=== PATIENT | female | born 1945 | race Caucasian/White ===

== ENCOUNTER 2016-12-22 16:31 | Emergency (ER) | payer MEDICARE ==
--- NOTE | 2016-12-22 17:29 | DIAGNOSTIC IMAGING REPORT ---
PROCEDURE: XR KNEE 4 VIEWS - LEFT INDICATION: TRAUMA/INJURY TECHNIQUE: Four views. COMPARISON: None. FINDINGS: Fracture of the patella. There is also a joint effusion. IMPRESSION: 1. Patellar fracture.
--- NOTE | 2016-12-22 17:43 | ED CLINICAL REPORT ---
Clinical Report - Physicians/Mid Levels [facility] [address] [place] [address] 12/22/2016 16:32 [id number] Time Seen: 16:45 Dec 22 2016. Arrived- By private vehicle. Historian- patient, family and daughter. HISTORY OF PRESENT ILLNESS Chief Complaint: Injury to left knee. The injury happened yesterday. The patient sustained a direct blow and crush injury. Fell. Patient is experiencing severe pain. Patient denies injury to the head or neck. (Patient fell onto left knee yesterday. No other injuries. Denies any injuries to the head. Patient has been unable to bear weight on the leg. No prior injury to the area.). REVIEW OF SYSTEMS The patient complains of pain on weight bearing. No skin laceration. All systems otherwise negative, except as recorded above. PAST HISTORY See nurses notes. The patient has not had a prior injury to the same area. Problems: Thyroid Disease. Myofascial Strain. Diabetes Mellitus. Heart Disease. Hypertension. Additional Surgeries: Carpal Tunnel Surgery. Cholecystectomy. Hysterectomy. Medications: Levothyroxine Sodium Oral 125 mcg, daily. Atenolol Oral 25 mg, at bedtime. Atorvastatin Calcium Oral 10 mg, at bedtime. Calcium + D Oral (Tablet 600-200 mg-unit) 2 tablets, pm. Citalopram Hydrobromide Oral (Tablet 20 mg) 1 tablet, pm. Doxazosin Mesylate Oral (Tablet 8 mg) 1 tablet, pm. Glimepiride Oral 5mg BID . MetFORMIN HCl Oral (Tablet 1000 mg), 2x a day. Omeprazole Oral 20 mg, daily. Verapamil HCl Oral SR 240 mg, 2x a day. ASA Oral 325mg daily . Allergies: Codeine.(nausea) Sulfa Antibiotics.(hives). SOCIAL HISTORY Current every day heavy tobacco smoker. No alcohol use or drug use. ADDITIONAL NOTES The nursing notes have been reviewed. PHYSICAL EXAM Vital Signs: 12/22/2016 16:45 BP: 155/70. HR: 79. RR: 18. O2 saturation: 96%. Temp: 97 F. Pain level now: 10/10. Appearance: Alert. Appears to be in pain. Patient in moderate distress. Head: Head atraumatic. Neck: C-spine non-tender. CVS: Normal heart rate and rhythm. Heart sounds normal. Respiratory: No respiratory distress. Breath sounds normal. Extremities: Left thigh. No tenderness or swelling. Left knee: moderate tenderness, severe swelling and small abrasion located in the patella. Limited ROM. No erythema, puncture wound or foreign body. Neuro, Vascular and Tendons: Vascular status intact. Motor intact. Gait: The patient was unable to bear weight. Neuro: Oriented X 3. LABS, X-RAYS, AND EKG EKG: EKG time: (1849). No acute process. No acute ischemia. Rate: 75. Normal ST and T waves and QT. No non-specific ST segment / T wave abnormalities or ST elevation. NSR with minimal voltage criteria for LVH. Prior EKG unavailable. Chest X-ray: (no acute findings of infiltrate/ mass). Laboratory Tests: CBC w Diff: (SHANNAN: 12/22/2016 18:40) ( [facility] [place]/22/[place] 19:13) Final results Test Result Flag Units (Reference) WHITE BLOOD COUNT 16.1 H K/uL (4.5-11.5) RED BLOOD COUNT 4.43 M/uL (4.00-5.20) HEMOGLOBIN 13.9 gm/dL (12.0-16.0) HEMATOCRIT 40.8 % (36.0-46.0) MEAN CELL VOLUME 92 fL (80-100) MEAN CORPUSCULAR HGB 31 pg (26-34) MEAN CORPUSCULAR HGB CONC 34 g/dL (31-37) RED CELL DISTRIBUTION WIDTH 14.0 % (11.6-14.8) PLATELET COUNT 279 K/uL (150-400) NEUTROPHIL % 85.6 H % (50-75) LYMPH % 9.3 L % (25-40) MONO % 4.7 % (3-14) EOSINOPHIL % 0.1 % (0-4) BASOPHIL % 0.3 % (0-2) CMP: (SHANNAN: 12/22/2016 18:40) ( [facility] [place] 12/22/2016 19:13) Final results Test Result Flag Units (Reference) GLUCOSE 145 H mg/dL (70-110) BUN 22 H mg/dL (7-18) CREATININE 1.2 mg/dL (0.6-1.3) Estimated GFR 46.94 mL/min Estimated GFR- 56.89 mL/min Note: Persistent reduction over 3 months in eGFR<60 mL/min/1.73 m2 defines CKD. Patients with eGFR values>=60 mL/min/1.73 m2 may also have CKD if evidence ofpersistent proteinuria. Additional information may be foundat www.kidney.org. SODIUM 137 mmol/L (136-145) POTASSIUM 4.3 mmol/L (3.5-5.1) CHLORIDE 100 mmol/L (98-107) CARBON DIOXIDE 25 mmol/L (21-32) CALCIUM 9.4 mg/dL (8.5-10.1) TOTAL PROTEIN 7.4 g/dL (6.4-8.2) ALBUMIN 3.9 g/dL (3.3-5.0) BILIRUBIN, TOTAL 0.5 mg/dL (0.0-1.0) ALKALINE PHOSPHATASE 57 U/L (46-116) AST (SGOT) 21 U/L (15-37) ALT (SGPT) 30 U/L (12-78) . PROGRESS AND PROCEDURES Splint Application: Time: 18:39 Dec 22 2016. Knee immobilizer applied to left foot, ankle and lower leg. Splint applied by [facility] with direct supervision by me. Follow-up recommended within 6 days. Course of Care: Discussed case with DR. Aguiar, will consult ortho Discussed case with DR. Trujillo, will review images Dr. Trujillo 18:30 in ER Discussed case with DR. Wheeler: Admission of Patella fx , admission Discussed case with DR. Trujillo who would preferr outpatient f/u / or date due to need of time to heal of skin/ effusion Informed Dr. Wheeler of the changes. 12/22/2016 16:45 BP: 155/70. HR: 79. RR: 18. O2 saturation: 96%. Temp: 97 F. Pain level now: 10/10. Patient is stable. Symptoms better. Patient/family counseled. Disposition: Discharged. CLINICAL IMPRESSION Closed transverse fracture of the left patella. Chronic, well controlled type 2 diabetes. Hypertension. Fall. INSTRUCTIONS Apply ice. Wear knee immobilizer. Elevate affected areas above chest level. No strenuous activity. No weight bearing. Prescription Medications: Ibuprofen 800 mg tablets: take 1 tablet orally every 8 hours for 5 days, as needed for pain. Dispense fifteen (15). No refill. Percocet 5 mg/325 mg: take 1 tablet orally every 6 hours as needed for pain. Dispense twenty-five (25). No refill. Substitution is permissible. Follow-up: Follow up with a specialist. Follow[facility] with: [facility], , [address] [facility], [id number] Follow up. Call for the next available appointment. (Electronically signed by Alfreda Hua P.A.-C 12/22/2016 19:28)
--- NOTE | 2016-12-22 17:43 | ED NURSING NOTES ---
Clinical Report - Nurses [facility] [address] [place] [address] 12/22/2016 16:32 [id number] TRI[facility] Triage time 16:45. Acuity: LEVEL 3. Chief Complaint: INJURY TO LEFT KNEE. Alert. WAGNER COMA SCORE: Wagner Coma Scale: 15- eyes open spontaneously (4); best verbal response- oriented x 4 (5); best motor response- obeys commands (6). --17:04 Shahla Snyder R.N. 16:45 12/22/16. BP: 155/70. HR: 79. RR: 18. O2 saturation: 96% on room air. Temp: 97 F. Pain level now: 03/27. --17:04 Shahla Snyder R.N. Weight: 83.9 kg stated. Height/Length: 63 inches Per Patient. BMI: 32.8. --16:54 Shahla Snyder R.N. Medications ASA Oral 325mg daily . --16:50 Shahla Snyder R.N. Atenolol Oral 25 mg, at bedtime. Atorvastatin Calcium Oral 10 mg, at bedtime. Calcium + D Oral (Tablet 600-200 mg-unit) 2 tablets, pm. Citalopram Hydrobromide Oral (Tablet 20 mg) 1 tablet, pm. Doxazosin Mesylate Oral (Tablet 8 mg) 1 tablet, pm. Glimepiride Oral 5mg BID . MetFORMIN HCl Oral (Tablet 1000 mg), 2x a day. Omeprazole Oral 20 mg, daily. Verapamil HCl Oral SR 240 mg, 2x a day. --16:50 Shahla Snyder R.N. Levothyroxine Sodium Oral 125 mcg, daily. --16:51 Shahla Snyder R.N. Medication/allergy information source: the patient. --17:04 Shahla Snyder R.N. Allergies Sulfa Antibiotics.(hives) --16:51 Shahla Snyder R.N. Codeine.(nausea) --16:51 Shahla Snyder R.N. History Arrived by private vehicle. Historian: patient. Accompanied by family. Primary physician (Primitivo). This occurred last night. Mechanism of injury: fell (outside, tripped on a stepping stone). She has had trouble walking. SOCIAL HX: Heavy tobacco smoker- 1 pack per day. No alcohol use or drug use. FALL RISK ASSESSMENT: Fall risk assessment completed. Risk factors identified include patient history of fall; does all of her own yard work. FUNCTIONAL ASSESSMENT: Functional assessment performed: independent with the activities of daily living; uses wheelchair- this mobility impairment is a new problem; hearing impairment present- this hearing impairment is an ongoing problem. --17:04 Shahla Snyder R.N. PROBLEMS: Thyroid Disease. Myofascial Strain. Diabetes Mellitus. Heart Disease. Hypertension. --16:52 Shahla Snyder R.N. ADDITIONAL SURGERIES: Carpal Tunnel Surgery. Cholecystectomy. Hysterectomy. --16:52 Shahla Snyder R.N. Assessment GENERAL / NEURO / PSYCH: Alert. Oriented X 4. Appears in no acute distress. Patient appears calm and cooperative. RESPIRATORY: Respirations not labored. SKIN: Skin is warm and dry. --17:04 Shahla Snyder R.N. Interventions ID and allergy band on patient. To treatment room. --17:04 Shahla Snyder R.N. PHYSICAL ASSESSMENT <<STRICKEN ENTRY-- 17:06 12/22/16. To room via wheelchair. GENERAL / NEURO / PSYCH: ([place] and doesn't have her hearing aid in). She is awake and alert, is oriented and cooperative and appears uncomfortable. She has good eye contact. EXTREMITIES: Limited ROM present. She was unable to bear weight. SKIN: Skin is warm and dry. She has an abrasion. ( right knee swollen). --17:06 Shahla Snyder R.N. --END STRIKE>> Correction --17:09 Shahla Snyder R.N. 17:06 12/22/16. To room via wheelchair. GENERAL / NEURO / PSYCH: ([place] and doesn't have her hearing aid in). She is awake and alert, is oriented and cooperative and appears uncomfortable. She has good eye contact. EXTREMITIES: Limited ROM present. She was unable to bear weight. SKIN: Skin is warm and dry. She has an abrasion. ( left knee swollen). --17:09 Shahla Snyder R.N. NURSING PROGRESS NOTES 17:07 12/22/16. Call light placed in reach. Side rails up x 1. Bed placed in lowest position. Brakes of bed on. --17:07 Shahla Snyder R.N. <<STRICKEN ENTRY-- 17:07. Portable x-ray performed and right knee x-ray performed. --17:07 Shahla Snyder R.N. --END STRIKE>> Correction --17:08 Shahla Snyder R.N. 17:07. Portable x-ray performed and left knee x-ray performed. --17:08 Shahla Snyder R.N. 17:33 12/22/2016 Percocet (Oxycodone-Acetaminophen) PO 5/325 mg Tablets 1 tab given. Allergies verified, confirmed 5 rights and sedative warning given to the patient. --17:33 Shahla Snyder R.N. 17:33 12/22/2016 Motrin PO Tablets 800 mg given. Allergies verified and confirmed 5 rights. --17:34 Shahla Snyder R.N. 17:33 12/22/16. Point of care testing: performed by nurse. Glucose: 182. Result shown to the PA. --17:33 Shahla Snyder R.N. 17:59 12/22/2016 Dilaudid (HYDROmorphone HCl PF) IM 1 mg given. Given in the left deltoid. Allergies verified, confirmed 5 rights and sedative warning given to the patient. --18:04 Shahla Snyder R.N. 18:19 12/22/16. Immobilizer applied to the left knee by lead quality technician; distal pulses intact, sensation intact and motor function within normal limits. --18:20 Vitor Manuel Patient fit with new crutches. Crutch training performed by tech; the patient demonstrated proper use. --18:20 Vitor Manuel 18:50 12/22/16. EKG time: (319). EKG was performed by a tech and shown to the PA. --18:50 Vitor Manuel Extremities: Neuro-vascular status intact to the extremities. 19:21 12/22/16. GENERAL / NEURO / PSYCH: Alert. Oriented X 4. RESPIRATORY: No respiratory distress. CVS: Capillary refill less than 2 seconds. SKIN: Skin is warm and dry. --19:21 Devika Alcantar. DISPOSITION / DISCHARGE 19:21 12/22/16. Condition at departure: improved. The goals identified in the patient's plan of care were met. No learning barriers present. Discharge instructions provided and reviewed with the patient. Reviewed warnings (Patient verbalized understanding of sedation warning. Patient verbalized awareness of warning s/sx listed in dc paperwork.). Reviewed medication(s). Prescription(s) given to the patient (Oxycodone, ibuprofen.). Treatments reviewed. Reviewed referral to a primary care physician for followup. Patient verbalized understanding. Written instructions provided in Malian. The patient was discharged by the physician promotions assistant. She was discharged home and accompanied by family. She left the Emergency Department in a wheelchair and via private vehicle. Family member driving. FALL RISK ASSESSMENT: Fall risk assessment completed. No fall risk identified. --19:21 Devika Alcantar 19:21 12/22/16. Departure time: 19:Dec 22 2016. --19:21 Devika Alcantar. Locked/Released at 12/22/2016 19:22 by Devika Alcantar,
--- NOTE | 2016-12-22 17:43 | ED ORDER SUMMARY ---
..... Patient: LAURA CORTES OrderSheet [facility] VisitID: [id number] [address] [place] [address] 71y, F Registration Date/Time: 12/22/2016 ORDER SHEET Weight: 83.9 kg (stated) Allergies: Sulfa Antibiotics, Codeine GENERAL ORDERS: Knee 4V Left Urgent (16:54 12/22/2016 EKoroleva P.A.-C) (17:23 Javier R.N.) POC Glucose (17:23 12/22/2016 EKoroleva P.A.-C) (17:34 Javier R.N.) Crutches (17:41 12/22/2016 EKoroleva P.A.-C) (18:11 Javier R.N.) Knee Immobilizer (17:41 12/22/2016 EKoroleva P.A.-C) (18:11 Javier R.N.) Chest 2V Urgent (18:23 12/22/2016 EKoroleva P.A.-C) (Ack 18:25 KHoerner) (18:50 KHoerner) CBC w Diff Urgent (18:23 12/22/2016 EKoroleva P.A.-C) (Ack 18:25 KHoerner) (18:50 KHoerner) CMP Urgent (18:23 12/22/2016 EKoroleva P.A.-C) (Ack 18:25 KHoerner) (18:50 KHoerner) EKG - ER Stat (18:23 12/22/2016 EKoroleva P.A.-C) (18:50 KHoerner) MEDICATION ORDERS: Percocet PO 5/325 mg (HIGH ALERT MEDICATION, NOW) (17:22 12/22/2016 EKoroleva P.A.-C) (Ack 17:23 Javier R.N.) (17:33 Javier R.N.) Motrin PO 800 mg (NOW) (17:22 12/22/2016 EKoroleva P.A.-C) (Ack 17:23 Javier R.N.) (17:34 Javier R.N.) Dilaudid IM 1 mg (HIGH ALERT MEDICATION, NOW) (17:52 12/22/2016 Mitra Ly) (Ack 17:53 Javier Espinoza) (18:04 Javier Espinoza) IV FLUIDS: ORDER SHEET NOTES: [Electronically signed by Devika Alcantar (19:22 12/22/2016)] [Electronically signed by Alfreda Hua P.A.-C (19:28 12/22/2016)] [Electronically locked/signed by Devika Alcantar (19:22 12/22/2016)]
--- NOTE | 2016-12-22 17:43 | ED ORDER SUMMARY ---
..... Patient: LAURA CORTES OrderSheet [facility] VisitID: [id number] [address] [place] [address] 71y, F Registration Date/Time: 12/22/2016 ORDER SHEET Weight: 83.9 kg (stated) Allergies: Sulfa Antibiotics, Codeine GENERAL ORDERS: Knee 4V Left Urgent (16:54 12/22/2016 EKoroleva P.A.-C) (17:23 Javier R.N.) POC Glucose (17:23 12/22/2016 EKoroleva P.A.-C) (17:34 Javier R.N.) Crutches (17:41 12/22/2016 EKoroleva P.A.-C) (18:11 Javier R.N.) Knee Immobilizer (17:41 12/22/2016 EKoroleva P.A.-C) (18:11 Javier R.N.) Chest 2V Urgent (18:23 12/22/2016 EKoroleva P.A.-C) (Ack 18:25 KHoerner) (18:50 KHoerner) CBC w Diff Urgent (18:23 12/22/2016 EKoroleva P.A.-C) (Ack 18:25 KHoerner) (18:50 KHoerner) CMP Urgent (18:23 12/22/2016 EKoroleva P.A.-C) (Ack 18:25 KHoerner) (18:50 KHoerner) EKG - ER Stat (18:23 12/22/2016 EKoroleva P.A.-C) (18:50 KHoerner) MEDICATION ORDERS: Percocet PO 5/325 mg (HIGH ALERT MEDICATION, NOW) (17:22 12/22/2016 EKoroleva P.A.-C) (Ack 17:23 Javier R.N.) (17:33 Javier R.N.) Motrin PO 800 mg (NOW) (17:22 12/22/2016 EKoroleva P.A.-C) (Ack 17:23 Javier R.N.) (17:34 Javier R.N.) Dilaudid IM 1 mg (HIGH ALERT MEDICATION, NOW) (17:52 12/22/2016 Mitra Ly) (Ack 17:53 Javier Espinoza) (18:04 Javier Espinoza) IV FLUIDS: ORDER SHEET NOTES: [Electronically signed by Devika Alcantar (19:22 12/22/2016)] [Electronically signed by Alfreda Hua P.A.-C (19:28 12/22/2016)] [Electronically locked/signed by Devika Alcantar (19:22 12/22/2016)]
--- NOTE | 2016-12-22 17:43 | ED NURSING NOTES ---
Clinical Report - Nurses [facility] [address] [place] [address] 12/22/2016 16:32 [id number] Triage time 16:45. Acuity: LEVEL 3. Chief Complaint: INJURY TO LEFT KNEE. Alert. WAGNER COMA SCORE: Wagner Coma Scale: 15- eyes open spontaneously (4); best verbal response- oriented x 4 (5); best motor response- obeys commands (6). --17:04 Shahla Snyder R.N. 16:45 12/22/16. BP: 155/70. HR: 79. RR: 18. O2 saturation: 96% on room air. Temp: 97 F. Pain level now: 03/27. --17:04 Shahla Snyder R.N. Weight: 83.9 kg stated. Height/Length: 63 inches Per Patient. BMI: 32.8. --16:54 Shahla Snyder R.N. Medications ASA Oral 325mg daily . --16:50 Shahla Snyder R.N. Atenolol Oral 25 mg, at bedtime. Atorvastatin Calcium Oral 10 mg, at bedtime. Calcium + D Oral (Tablet 600-200 mg-unit) 2 tablets, pm. Citalopram Hydrobromide Oral (Tablet 20 mg) 1 tablet, pm. Doxazosin Mesylate Oral (Tablet 8 mg) 1 tablet, pm. Glimepiride Oral 5mg BID . MetFORMIN HCl Oral (Tablet 1000 mg), 2x a day. Omeprazole Oral 20 mg, daily. Verapamil HCl Oral SR 240 mg, 2x a day. --16:50 Shahla Snyder R.N. Levothyroxine Sodium Oral 125 mcg, daily. --16:51 Shahla Snyder R.N. Medication/allergy information source: the patient. --17:04 Shahla Snyder R.N. Allergies Sulfa Antibiotics.(hives) --16:51 Shahla Snyder R.N. Codeine.(nausea) --16:51 Shahla Snyder R.N. History Arrived by private vehicle. Historian: patient. Accompanied by family. Primary physician (Primitivo). This occurred last night. Mechanism of injury: fell (outside, tripped on a stepping stone). She has had trouble walking. SOCIAL HX: Heavy tobacco smoker- 1 pack per day. No alcohol use or drug use. FALL RISK ASSESSMENT: Fall risk assessment completed. Risk factors identified include patient history of fall; does all of her own yard work. FUNCTIONAL ASSESSMENT: Functional assessment performed: independent with the activities of daily living; uses wheelchair- this mobility impairment is a new problem; hearing impairment present- this hearing impairment is an ongoing problem. --17:04 Shahla Snyder R.N. PROBLEMS: Thyroid Disease. Myofascial Strain. Diabetes Mellitus. Heart Disease. Hypertension. --16:52 Shahla Snyder R.N. ADDITIONAL SURGERIES: Carpal Tunnel Surgery. Cholecystectomy. Hysterectomy. --16:52 Shahla Snyder R.N. Assessment GENERAL / NEURO / PSYCH: Alert. Oriented X 4. Appears in no acute distress. Patient appears calm and cooperative. RESPIRATORY: Respirations not labored. SKIN: Skin is warm and dry. --17:04 Shahla Snyder R.N. Interventions ID and allergy band on patient. To treatment room. --17:04 Shahla Snyder R.N. PHYSICAL ASSESSMENT <<STRICKEN ENTRY-- 17:06 12/22/16. To room via wheelchair. GENERAL / NEURO / PSYCH: ([place] and doesn't have her hearing aid in). She is awake and alert, is oriented and cooperative and appears uncomfortable. She has good eye contact. EXTREMITIES: Limited ROM present. She was unable to bear weight. SKIN: Skin is warm and dry. She has an abrasion. ( right knee swollen). --17:06 Shahla Snyder R.N. --END STRIKE>> Correction --17:09 Shahla Snyder R.N. 17:06 12/22/16. To room via wheelchair. GENERAL / NEURO / PSYCH: ([place] and doesn't have her hearing aid in). She is awake and alert, is oriented and cooperative and appears uncomfortable. She has good eye contact. EXTREMITIES: Limited ROM present. She was unable to bear weight. SKIN: Skin is warm and dry. She has an abrasion. ( left knee swollen). --17:09 Shahla Snyder R.N. NURSING PROGRESS NOTES 17:07 12/22/16. Call light placed in reach. Side rails up x 1. Bed placed in lowest position. Brakes of bed on. --17:07 Shahla Snyder R.N. <<STRICKEN ENTRY-- 17:07. Portable x-ray performed and right knee x-ray performed. --17:07 Shahla Snyder R.N. --END STRIKE>> Correction --17:08 Shahla Snyder R.N. 17:07. Portable x-ray performed and left knee x-ray performed. --17:08 Shahla Snyder R.N. 17:33 12/22/2016 Percocet (Oxycodone-Acetaminophen) PO 5/325 mg Tablets 1 tab given. Allergies verified, confirmed 5 rights and sedative warning given to the patient. --17:33 Shahla Snyder R.N. 17:33 12/22/2016 Motrin PO Tablets 800 mg given. Allergies verified and confirmed 5 rights. --17:34 Shahla Snyder R.N. 17:33 12/22/16. Point of care testing: performed by nurse. Glucose: 182. Result shown to the PA. --17:33 Shahla Snyder R.N. 17:59 12/22/2016 Dilaudid (HYDROmorphone HCl PF) IM 1 mg given. Given in the left deltoid. Allergies verified, confirmed 5 rights and sedative warning given to the patient. --18:04 Shahla Snyder R.N. 18:19 12/22/16. Immobilizer applied to the left knee by airplane technician; distal pulses intact, sensation intact and motor function within normal limits. --18:20 Vitor Manuel Patient fit with new crutches. Crutch training performed by tech; the patient demonstrated proper use. --18:20 Vitor Manuel 18:50 12/22/16. EKG time: (617). EKG was performed by a tech and shown to the PA. --18:50 Vitor Manuel Extremities: Neuro-vascular status intact to the extremities. 19:21 12/22/16. GENERAL / NEURO / PSYCH: Alert. Oriented X 4. RESPIRATORY: No respiratory distress. CVS: Capillary refill less than 2 seconds. SKIN: Skin is warm and dry. --19:21 Devika Alcantar. DISPOSITION / DISCHARGE 19:21 12/22/16. Condition at departure: improved. The goals identified in the patient's plan of care were met. No learning barriers present. Discharge instructions provided and reviewed with the patient. Reviewed warnings (Patient verbalized understanding of sedation warning. Patient verbalized awareness of warning s/sx listed in dc paperwork.). Reviewed medication(s). Prescription(s) given to the patient (Oxycodone, ibuprofen.). Treatments reviewed. Reviewed referral to a primary care physician for followup. Patient verbalized understanding. Written instructions provided in Chadian. The patient was discharged by the physician doctor assistant. She was discharged home and accompanied by family. She left the Emergency Department in a wheelchair and via private vehicle. Family member driving. FALL RISK ASSESSMENT: Fall risk assessment completed. No fall risk identified. --19:21 Devika Alcantar 19:21 12/22/16. Departure time: 19:Dec 22 2016. --19:21 Devika Alcantar. Locked/Released at 12/22/2016 19:22 by Devika Alcantar,
--- NOTE | 2016-12-22 17:43 | ED CLINICAL REPORT ---
Clinical Report - Physicians/Mid Levels [facility] [address] [place] [address] 12/22/2016 16:32 [id number] Time Seen: 16:45 Dec 22 2016. Arrived- By private vehicle. Historian- patient, family and daughter. HISTORY OF PRESENT ILLNESS Chief Complaint: Injury to left knee. The injury happened yesterday. The patient sustained a direct blow and crush injury. Fell. Patient is experiencing severe pain. Patient denies injury to the head or neck. (Patient fell onto left knee yesterday. No other injuries. Denies any injuries to the head. Patient has been unable to bear weight on the leg. No prior injury to the area.). REVIEW OF SYSTEMS The patient complains of pain on weight bearing. No skin laceration. All systems otherwise negative, except as recorded above. PAST HISTORY See nurses notes. The patient has not had a prior injury to the same area. Problems: Thyroid Disease. Myofascial Strain. Diabetes Mellitus. Heart Disease. Hypertension. Additional Surgeries: Carpal Tunnel Surgery. Cholecystectomy. Hysterectomy. Medications: Levothyroxine Sodium Oral 125 mcg, daily. Atenolol Oral 25 mg, at bedtime. Atorvastatin Calcium Oral 10 mg, at bedtime. Calcium + D Oral (Tablet 600-200 mg-unit) 2 tablets, pm. Citalopram Hydrobromide Oral (Tablet 20 mg) 1 tablet, pm. Doxazosin Mesylate Oral (Tablet 8 mg) 1 tablet, pm. Glimepiride Oral 5mg BID . MetFORMIN HCl Oral (Tablet 1000 mg), 2x a day. Omeprazole Oral 20 mg, daily. Verapamil HCl Oral SR 240 mg, 2x a day. ASA Oral 325mg daily . Allergies: Codeine.(nausea) Sulfa Antibiotics.(hives). SOCIAL HISTORY Current every day heavy tobacco smoker. No alcohol use or drug use. ADDITIONAL NOTES The nursing notes have been reviewed. PHYSICAL EXAM Vital Signs: 12/22/2016 16:45 BP: 155/70. HR: 79. RR: 18. O2 saturation: 96%. Temp: 97 F. Pain level now: 10/10. Appearance: Alert. Appears to be in pain. Patient in moderate distress. Head: Head atraumatic. Neck: C-spine non-tender. CVS: Normal heart rate and rhythm. Heart sounds normal. Respiratory: No respiratory distress. Breath sounds normal. Extremities: Left thigh. No tenderness or swelling. Left knee: moderate tenderness, severe swelling and small abrasion located in the patella. Limited ROM. No erythema, puncture wound or foreign body. Neuro, Vascular and Tendons: Vascular status intact. Motor intact. Gait: The patient was unable to bear weight. Neuro: Oriented X 3. LABS, X-RAYS, AND EKG EKG: EKG time: (1849). No acute process. No acute ischemia. Rate: 75. Normal ST and T waves and QT. No non-specific ST segment / T wave abnormalities or ST elevation. NSR with minimal voltage criteria for LVH. Prior EKG unavailable. Chest X-ray: (no acute findings of infiltrate/ mass). Laboratory Tests: CBC w Diff: (SHANNAN: 12/22/2016 18:40) ( [facility] 12[facility] 19[facility]13) Final results Test Result Flag Units (Reference) WHITE BLOOD COUNT 16.1 H K/uL (4.5-11.5) RED BLOOD COUNT 4.43 M/uL (4.00-5.20) HEMOGLOBIN 13.9 gm/dL (12.0-16.0) HEMATOCRIT 40.8 % (36.0-46.0) MEAN CELL VOLUME 92 fL (80-100) MEAN CORPUSCULAR HGB 31 pg (26-34) MEAN CORPUSCULAR HGB CONC 34 g/dL (31-37) RED CELL DISTRIBUTION WIDTH 14.0 % (11.6-14.8) PLATELET COUNT 279 K/uL (150-400) NEUTROPHIL % 85.6 H % (50-75) LYMPH % 9.3 L % (25-40) MONO % 4.7 % (3-14) EOSINOPHIL % 0.1 % (0-4) BASOPHIL % 0.3 % (0-2) CMP: (SHANNAN: 12/22/2016 18:40) ( [facility] 12/22/2016 19:13) Final results Test Result Flag Units (Reference) GLUCOSE 145 H mg/dL (70-110) BUN 22 H mg/dL (7-18) CREATININE 1.2 mg/dL (0.6-1.3) Estimated GFR 46.94 mL/min Estimated GFR- 56.89 mL/min Note: Persistent reduction over 3 months in eGFR<60 mL/min/1.73 m2 defines CKD. Patients with eGFR values>=60 mL/min/1.73 m2 may also have CKD if evidence ofpersistent proteinuria. Additional information may be foundat www.[email or web address].org. SODIUM 137 mmol/L (136-145) POTASSIUM 4.3 mmol/L (3.5-5.1) CHLORIDE 100 mmol/L (98-107) CARBON DIOXIDE 25 mmol/L (21-32) CALCIUM 9.4 mg/dL (8.5-10.1) TOTAL PROTEIN 7.4 g/dL (6.4-8.2) ALBUMIN 3.9 g/dL (3.3-5.0) BILIRUBIN, TOTAL 0.5 mg/dL (0.0-1.0) ALKALINE PHOSPHATASE 57 U/L (46-116) AST (SGOT) 21 U/L (15-37) ALT (SGPT) 30 U/L (12-78) . PROGRESS AND PROCEDURES Splint Application: Time: 18:39 Dec 22 2016. Knee immobilizer applied to left foot, ankle and lower leg. Splint applied by [facility] with direct supervision by me. Follow-up recommended within 6 days. Course of Care: Discussed case with DR. Aguiar, will consult ortho Discussed case with DR. Trujillo, will review images Dr. Trujillo 18:30 in ER Discussed case with DR. Wheeler: Admission of Patella fx , admission Discussed case with DR. Trujillo who would preferr outpatient f/u / or date due to need of time to heal of skin/ effusion Informed Dr. Wheeler of the changes. 12/22/2016 16:45 BP: 155/70. HR: 79. RR: 18. O2 saturation: 96%. Temp: 97 F. Pain level now: 10/10. Patient is stable. Symptoms better. Patient/family counseled. Disposition: Discharged. CLINICAL IMPRESSION Closed transverse fracture of the left patella. Chronic, well controlled type 2 diabetes. Hypertension. Fall. INSTRUCTIONS Apply ice. Wear knee immobilizer. Elevate affected areas above chest level. No strenuous activity. No weight bearing. Prescription Medications: Ibuprofen 800 mg tablets: take 1 tablet orally every 8 hours for 5 days, as needed for pain. Dispense fifteen (15). No refill. Percocet 5 mg/325 mg: take 1 tablet orally every 6 hours as needed for pain. Dispense twenty-five (25). No refill. Substitution is permissible. Follow-up: Follow up with a specialist. [facility]: [facility], , [address] [facility] [id number] Follow up. Call for the next available appointment. (Electronically signed by Alfreda Hua P.A.-C 12/22/2016 19:28)
--- NOTE | 2016-12-22 19:28 | ED MAR SUMMARY ---
..... Medication Administration Record [facility] [address] [place] [address] Patient: LAURA CORTES Visit ID: [id number] 71y, F Weight: 83.9 kg Height/Length: 63 in BMI: 32.8 ALLERGIES: Codeine, Sulfa Antibiotics Given 17:33 12/22/2016 Shahla Snyder R.N. Medication Administered: PERCOCET [PO] (OXYCODONE-ACETAMINOPHEN), Dose: 1 tab 5/325 mg Tablets PO. Medication Ordered: Percocet PO 5/325 mg (HIGH ALERT MEDICATION, NOW). Given 17:12/22/2016 Shahla Snyder R.N. Medication Administered: MOTRIN [PO], Dose: 800 mg Tablets PO. Medication Ordered: Motrin PO 800 mg (NOW). Given 17:12/22/2016 Shahla Snyder R.N. Medication Administered: DILAUDID [IM] (HYDROMORPHONE HCL PF), Dose: 1 mg IM. Medication Ordered: Dilaudid IM 1 mg (HIGH ALERT MEDICATION, NOW).
--- NOTE | 2016-12-22 19:28 | ED DISCHARGE INSTRUCTIONS ---
Patient: LAURA CORTES General Instructions [facility] VisitID: [id number] [address], [place], [place] [id number] 71y, F Registration Date/Time: 12/22/2016 Closed transverse fracture of the left patella. Chronic, well controlled type 2 diabetes. Hypertension. Fall. INSTRUCTIONS Apply ice. Wear knee immobilizer. Elevate affected areas above chest level. No strenuous activity. No weight bearing. Prescription Medications: Ibuprofen 800 mg tablets: take 1 tablet orally every 8 hours for 5 days, as needed for pain. Dispense fifteen (15). No refill. Percocet 5 mg/325 mg: take 1 tablet orally every 6 hours as needed for pain. Dispense twenty-five (25). No refill. Substitution is permissible. Follow-up: Follow up with a specialist. Follow-up with: [facility], , [address], [place], [address] Follow up. Call for the next available appointment. ADDITIONAL INFORMATION Patella Fracture You have a fracture (break) of the patella bone ("kneecap"). This causes pain, swelling and sometimes bruising. Depending on the severity of the fracture, this will take about 4-6 weeks to heal. A knee brace (immobilizer), splint or cast will be applied. Home Care: 1) You will be given a splint, cast or knee brace to prevent movement at the knee joint. Unless you were told otherwise, use crutches or a walker and do not bear weight on the injured leg until cleared by your doctor to do so. (Crutches and walkers can be rented at many pharmacies and surgical/orthopedic supply stores). 2) Keep your leg elevated to reduce pain and swelling. When sleeping, place a pillow under the injured leg. When sitting, support the injured leg so it is level with your waist. This is very important during the first 48 hours. 3) Apply an ice pack (ice cubes in a plastic bag, wrapped in a towel) over the injured area for 20 minutes every 1-2 hours the first day. You can place the ice pack directly over the splint/cast/brace. Continue with ice packs 3-4 times a day for the next two days, then as needed for the relief of pain and swelling. 4) Keep the cast/splint/brace completely dry at all times. Bathe with your cast/splint/brace out of the water, protected with a large plastic bag, rubber-banded at the top end. If a brace or fiberglass cast/splint or brace gets wet, you can dry it with a hair-dryer. 5) You may use acetaminophen (Tylenol) or ibuprofen (Motrin, Advil) to control pain, unless another pain medicine was prescribed. [ NOTE : If you have chronic liver or kidney disease or ever had a stomach ulcer or GI bleeding, talk with your doctor before using these medicines.] Follow Up with your doctor in one week, or as advised by our staff, to be sure the bone is healing properly. [NOTE: A radiologist will review any X-rays that were taken. We will notify you of any new findings that may affect your care. Get Prompt Medical Attention if any of the following occur: -- The plaster cast or splint becomes wet or soft -- The fiberglass cast or splint remains wet for more than 24 hours -- Increased knee pain or tightness under the brace, splint or cast -- Toes become swollen, cold, blue, numb or tingly Knee Immobilizer A KNEE IMMOBILIZER is used to provide support and limit movement of the knee. This will make you more comfortable as your injury heals. Home Use: 1) Unless told otherwise, the knee brace should be worn whenever you are out of bed. You may wear it in bed while asleep for the first few nights or until the pain starts to go away. Otherwise, remove the brace at night to avoid muscle stiffness from lack of joint movement. 2) You can open the velcro brace to dress, bathe and apply ice packs as directed. Get Prompt Medical Attention if any of the following occur: -- Worsening pain in the knee -- Weakness or numbness or tingling in the foot -- Increased swelling, redness or warmth of the knee joint Oxycodone Hydrochloride, Acetaminophen Oral tablet What is this medicine? ACETAMINOPHEN; OXYCODONE (a set a WILL roddy fen; ox i KOE done) is a pain reliever. It is used to treat mild to moderate pain. How should I use this medicine? Take this medicine by mouth with a full glass of water. Follow the directions on the prescription label. Take your medicine at regular intervals. Do not take your medicine more often than directed. Talk to your embedded software programmer regarding the use of this medicine in children. Special care may be needed. Patients over 65 years old may have a stronger reaction and need a smaller dose. What side effects may I notice from receiving this medicine? Side effects that you should report to your doctor or health physician locums urgent care as soon as possible: allergic reactions like skin rash, itching or hives, swelling of the face, lips, or tongue breathing difficulties, wheezing confusion light headedness or fainting spells severe stomach pain yellowing of the skin or the whites of the eyes Side effects that usually do not require medical attention (report to your doctor or health physician locums urgent care if they continue or are bothersome): dizziness drowsiness nausea vomiting What may interact with this medicine? alcohol antihistamines barbiturates like amobarbital, butalbital, butabarbital, methohexital, pentobarbital, phenobarbital, thiopental, and secobarbital benztropine drugs for bladder problems like solifenacin, trospium, oxybutynin, tolterodine, hyoscyamine, and methscopolamine drugs for breathing problems like ipratropium and tiotropium drugs for certain stomach or intestine problems like propantheline, homatropine methylbromide, glycopyrrolate, atropine, belladonna, and dicyclomine general anesthetics like etomidate, ketamine, nitrous oxide, propofol, desflurane, enflurane, halothane, isoflurane, and sevoflurane medicines for depression, anxiety, or psychotic disturbances medicines for sleep muscle relaxants naltrexone narcotic medicines (opiates) for pain phenothiazines like perphenazine, thioridazine, chlorpromazine, mesoridazine, fluphenazine, prochlorperazine, promazine, and trifluoperazine scopolamine tramadol trihexyphenidyl What if I miss a dose? If you miss a dose, take it as soon as you can. If it is almost time for your next dose, take only that dose. Do not take double or extra doses. Where should I keep my medicine? Keep out of the reach of children. This medicine can be abused. Keep your medicine in a safe place to protect it from theft. Do not share this medicine with anyone. Selling or giving away this medicine is dangerous and against the law. Store at room temperature between 20 and 25 degrees C (68 and 77 degrees F). Keep container tightly closed. Protect from light. This medicine may cause accidental overdose and if it is taken by other adults, children, or pets. Flush any unused medicine down the toilet to reduce the chance of harm. Do not use the medicine after the expiration date. What should I tell my health care provider before I take this medicine? They need to know if you have any of these conditions: brain tumor Crohn's disease, inflammatory bowel disease, or ulcerative colitis drink more than 3 alcohol containing drinks per day drug abuse or addiction head injury heart or circulation problems kidney disease or problems going to the bathroom liver disease lung disease, asthma, or breathing problems an unusual or allergic reaction to acetaminophen, oxycodone, other opioid analgesics, other medicines, foods, dyes, or preservatives or trying to get breast-feeding What should I watch for while using this medicine? Tell your doctor or health physician locums urgent care if your pain does not go away, if it gets worse, or if you have new or a different type of pain. You may develop tolerance to the medicine. Tolerance means that you will need a higher dose of the medication for pain relief. Tolerance is normal and is expected if you take this medicine for a long time. Do not suddenly stop taking your medicine because you may develop a severe reaction. Your body becomes used to the medicine. This does NOT mean you are addicted. Addiction is a behavior related to getting and using a drug for a non-medical reason. If you have pain, you have a medical reason to take pain medicine. Your doctor will tell you how much medicine to take. If your doctor wants you to stop the medicine, the dose will be slowly lowered over time to avoid any side effects. You may get drowsy or dizzy. Do not drive, use machinery, or do anything that needs mental alertness until you know how this medicine affects you. Do not stand or sit up quickly, especially if you are an older patient. This reduces the risk of dizzy or fainting spells. Alcohol may interfere with the effect of this medicine. Avoid alcoholic drinks. There are different types of narcotic medicines (opiates) for pain. If you take more than one type at the same time, you may have more side effects. Give your health care provider a list of all medicines you use. Your doctor will tell you how much medicine to take. Do not take more medicine than directed. Call emergency for help if you have problems breathing. The medicine will cause constipation. Try to have a bowel movement at least every 2 to 3 days. If you do not have a bowel movement for 3 days, call your doctor or health physician locums urgent care. Do not take Tylenol (acetaminophen) or medicines that have acetaminophen with this medicine. Too much acetaminophen can be very dangerous. Many nonprescription medicines contain acetaminophen. Always read the labels carefully to avoid taking more acetaminophen. You have been given the following additional information: Patella Fracture Knee Immobilizer Oxycodone Hydrochloride, Acetaminophen Oral tablet No strenuous activity. No weight bearing. (Electronically signed by Alfreda Hua P.A.-C 12/22/2016 19:28)
--- NOTE | 2016-12-22 19:28 | ED MED RECONCILIATION SUMMARY ---
Patient: LAURA CORTES Medication Reconciliation Report [facility] VisitID: [id number] [address] [place] [address] 71y, F Registration Date/Time: 12/22/2016 Weight: 83.9 kg Height/Length: 63 in. BMI: 32.8 ALLERGIES: Codeine, Sulfa Antibiotics The patient's Home Medications are listed below: THE FOLLOWING MEDICATIONS NEED TO BE RECONCILED: ASA Oral 325mg daily Atenolol Oral 25 mg, at bedtime Atorvastatin Calcium Oral 10 mg, at bedtime Calcium + D Oral (600-200 mg-unit) 2 tablets, pm Citalopram Hydrobromide Oral (20 mg) 1 tablet, pm Doxazosin Mesylate Oral (8 mg) 1 tablet, pm Glimepiride Oral 5mg BID Levothyroxine Sodium Oral 125 mcg, daily MetFORMIN HCl Oral (1000 mg), 2x a day Omeprazole Oral 20 mg, daily Verapamil HCl Oral SR 240 mg, 2x a day The source(s) of the original Home Medication information: patient The following Medications were given to the patient in the Emergency Department: Percocet [PO] PO 1 tab, administered: 12/22/2016 5:33:00 PM Motrin [PO] PO 800 mg, administered: 12/22/2016 5:33:00 PM Dilaudid [IM] IM 1 mg, administered: 12/22/2016 5:59:00 PM The following Medications were prescribed to the patient: Ibuprofen 800 mg tablets: take 1 tablet orally every 8 hours for 5 days, as needed for pain. Dispense fifteen (15). No refill. -- Alfreda Hua P.APatrick-Monster Percocet 5 mg/325 mg: take 1 tablet orally every 6 hours as needed for pain. Dispense twenty-five (25). No refill. Substitution is permissible. -- Alfreda Hua P.APatrick-Monster
--- NOTE | 2016-12-22 19:28 | ED MED RECONCILIATION SUMMARY ---
Patient: LAURA CORTES Medication Reconciliation Report [facility] VisitID: [id number] [address] [place] [address] 71y, F Registration Date/Time: 12/22/2016 Weight: 83.9 kg Height/Length: 63 in. BMI: 32.8 ALLERGIES: Codeine, Sulfa Antibiotics The patient's Home Medications are listed below: THE FOLLOWING MEDICATIONS NEED TO BE RECONCILED: ASA Oral 325mg daily Atenolol Oral 25 mg, at bedtime Atorvastatin Calcium Oral 10 mg, at bedtime Calcium + D Oral (600-200 mg-unit) 2 tablets, pm Citalopram Hydrobromide Oral (20 mg) 1 tablet, pm Doxazosin Mesylate Oral (8 mg) 1 tablet, pm Glimepiride Oral 5mg BID Levothyroxine Sodium Oral 125 mcg, daily MetFORMIN HCl Oral (1000 mg), 2x a day Omeprazole Oral 20 mg, daily Verapamil HCl Oral SR 240 mg, 2x a day The source(s) of the original Home Medication information: patient The following Medications were given to the patient in the Emergency Department: Percocet [PO] PO 1 tab, administered: 12/22/2016 5:33:00 PM Motrin [PO] PO 800 mg, administered: 12/22/2016 5:33:00 PM Dilaudid [IM] IM 1 mg, administered: 12/22/2016 5:59:00 PM The following Medications were prescribed to the patient: Ibuprofen 800 mg tablets: take 1 tablet orally every 8 hours for 5 days, as needed for pain. Dispense fifteen (15). No refill. -- Alfreda Hua P.APatrick-Monster Percocet 5 mg/325 mg: take 1 tablet orally every 6 hours as needed for pain. Dispense twenty-five (25). No refill. Substitution is permissible. -- Alfreda Hua P.APatrick-Monster
--- NOTE | 2016-12-22 19:28 | ED MAR SUMMARY ---
..... Medication Administration Record [facility] [address] [place] [address] Patient: LAURA CORTES Visit ID: [id number] 71y, F Weight: 83.9 kg Height/Length: 63 in BMI: 32.8 ALLERGIES: Codeine, Sulfa Antibiotics Given 17:33 12/22/2016 Shahla Snyder R.N. Medication Administered: PERCOCET [PO] (OXYCODONE-ACETAMINOPHEN), Dose: 1 tab 5/325 mg Tablets PO. Medication Ordered: Percocet PO 5/325 mg (HIGH ALERT MEDICATION, NOW). Given 17:12/22/2016 Shahla Snyder R.N. Medication Administered: MOTRIN [PO], Dose: 800 mg Tablets PO. Medication Ordered: Motrin PO 800 mg (NOW). Given 17:12/22/2016 Shahla Snyder R.N. Medication Administered: DILAUDID [IM] (HYDROMORPHONE HCL PF), Dose: 1 mg IM. Medication Ordered: Dilaudid IM 1 mg (HIGH ALERT MEDICATION, NOW).
--- NOTE | 2016-12-22 19:28 | ED DISCHARGE INSTRUCTIONS ---
Patient: LAURA CORTES General Instructions [facility] VisitID: [id number] [address], [place], [place] [id number], F Registration Date/Time: 12/22/2016 Closed transverse fracture of the left patella. Chronic, well controlled type 2 diabetes. Hypertension. Fall. INSTRUCTIONS Apply ice. Wear knee immobilizer. Elevate affected areas above chest level. No strenuous activity. No weight bearing. Prescription Medications: Ibuprofen 800 mg tablets: take 1 tablet orally every 8 hours for 5 days, as needed for pain. Dispense fifteen (15). No refill. Percocet 5 mg/325 mg: take 1 tablet orally every 6 hours as needed for pain. Dispense twenty-five (25). No refill. Substitution is permissible. Follow-up: Follow up with a specialist. Follow-up with: [facility], , [address], [place], [id number] Follow up. Call for the next available appointment. ADDITIONAL INFORMATION Patella Fracture You have a fracture (break) of the patella bone ("kneecap"). This causes pain, swelling and sometimes bruising. Depending on the severity of the fracture, this will take about 4-6 weeks to heal. A knee brace (immobilizer), splint or cast will be applied. Home Care: 1) You will be given a splint, cast or knee brace to prevent movement at the knee joint. Unless you were told otherwise, use crutches or a walker and do not bear weight on the injured leg until cleared by your doctor to do so. (Crutches and walkers can be rented at many pharmacies and surgical/orthopedic supply stores). 2) Keep your leg elevated to reduce pain and swelling. When sleeping, place a pillow under the injured leg. When sitting, support the injured leg so it is level with your waist. This is very important during the first 48 hours. 3) Apply an ice pack (ice cubes in a plastic bag, wrapped in a towel) over the injured area for 20 minutes every 1-2 hours the first day. You can place the ice pack directly over the splint/cast/brace. Continue with ice packs 3-4 times a day for the next two days, then as needed for the relief of pain and swelling. 4) Keep the cast/splint/brace completely dry at all times. Bathe with your cast/splint/brace out of the water, protected with a large plastic bag, rubber-banded at the top end. If a brace or fiberglass cast/splint or brace gets wet, you can dry it with a hair-dryer. 5) You may use acetaminophen (Tylenol) or ibuprofen (Motrin, Advil) to control pain, unless another pain medicine was prescribed. [ NOTE : If you have chronic liver or kidney disease or ever had a stomach ulcer or GI bleeding, talk with your doctor before using these medicines.] Follow Up with your doctor in one week, or as advised by our staff, to be sure the bone is healing properly. [NOTE: A radiologist will review any X-rays that were taken. We will notify you of any new findings that may affect your care. Get Prompt Medical Attention if any of the following occur: -- The plaster cast or splint becomes wet or soft -- The fiberglass cast or splint remains wet for more than 24 hours -- Increased knee pain or tightness under the brace, splint or cast -- Toes become swollen, cold, blue, numb or tingly Knee Immobilizer A KNEE IMMOBILIZER is used to provide support and limit movement of the knee. This will make you more comfortable as your injury heals. Home Use: 1) Unless told otherwise, the knee brace should be worn whenever you are out of bed. You may wear it in bed while asleep for the first few nights or until the pain starts to go away. Otherwise, remove the brace at night to avoid muscle stiffness from lack of joint movement. 2) You can open the velcro brace to dress, bathe and apply ice packs as directed. Get Prompt Medical Attention if any of the following occur: -- Worsening pain in the knee -- Weakness or numbness or tingling in the foot -- Increased swelling, redness or warmth of the knee joint Oxycodone Hydrochloride, Acetaminophen Oral tablet What is this medicine? ACETAMINOPHEN; OXYCODONE (a set a WILL roddy fen; ox i KOE done) is a pain reliever. It is used to treat mild to moderate pain. How should I use this medicine? Take this medicine by mouth with a full glass of water. Follow the directions on the prescription label. Take your medicine at regular intervals. Do not take your medicine more often than directed. Talk to your lodging facilities manager regarding the use of this medicine in children. Special care may be needed. Patients over 65 years old may have a stronger reaction and need a smaller dose. What side effects may I notice from receiving this medicine? Side effects that you should report to your doctor or health respite care provider as soon as possible: allergic reactions like skin rash, itching or hives, swelling of the face, lips, or tongue breathing difficulties, wheezing confusion light headedness or fainting spells severe stomach pain yellowing of the skin or the whites of the eyes Side effects that usually do not require medical attention (report to your doctor or health respite care provider if they continue or are bothersome): dizziness drowsiness nausea vomiting What may interact with this medicine? alcohol antihistamines barbiturates like amobarbital, butalbital, butabarbital, methohexital, pentobarbital, phenobarbital, thiopental, and secobarbital benztropine drugs for bladder problems like solifenacin, trospium, oxybutynin, tolterodine, hyoscyamine, and methscopolamine drugs for breathing problems like ipratropium and tiotropium drugs for certain stomach or intestine problems like propantheline, homatropine methylbromide, glycopyrrolate, atropine, belladonna, and dicyclomine general anesthetics like etomidate, ketamine, nitrous oxide, propofol, desflurane, enflurane, halothane, isoflurane, and sevoflurane medicines for depression, anxiety, or psychotic disturbances medicines for sleep muscle relaxants naltrexone narcotic medicines (opiates) for pain phenothiazines like perphenazine, thioridazine, chlorpromazine, mesoridazine, fluphenazine, prochlorperazine, promazine, and trifluoperazine scopolamine tramadol trihexyphenidyl What if I miss a dose? If you miss a dose, take it as soon as you can. If it is almost time for your next dose, take only that dose. Do not take double or extra doses. Where should I keep my medicine? Keep out of the reach of children. This medicine can be abused. Keep your medicine in a safe place to protect it from theft. Do not share this medicine with anyone. Selling or giving away this medicine is dangerous and against the law. Store at room temperature between 20 and 25 degrees C (68 and 77 degrees F). Keep container tightly closed. Protect from light. This medicine may cause accidental overdose and if it is taken by other adults, children, or pets. Flush any unused medicine down the toilet to reduce the chance of harm. Do not use the medicine after the expiration date. What should I tell my health care provider before I take this medicine? They need to know if you have any of these conditions: brain tumor Crohn's disease, inflammatory bowel disease, or ulcerative colitis drink more than 3 alcohol containing drinks per day drug abuse or addiction head injury heart or circulation problems kidney disease or problems going to the bathroom liver disease lung disease, asthma, or breathing problems an unusual or allergic reaction to acetaminophen, oxycodone, other opioid analgesics, other medicines, foods, dyes, or preservatives or trying to get breast-feeding What should I watch for while using this medicine? Tell your doctor or health respite care provider if your pain does not go away, if it gets worse, or if you have new or a different type of pain. You may develop tolerance to the medicine. Tolerance means that you will need a higher dose of the medication for pain relief. Tolerance is normal and is expected if you take this medicine for a long time. Do not suddenly stop taking your medicine because you may develop a severe reaction. Your body becomes used to the medicine. This does NOT mean you are addicted. Addiction is a behavior related to getting and using a drug for a non-medical reason. If you have pain, you have a medical reason to take pain medicine. Your doctor will tell you how much medicine to take. If your doctor wants you to stop the medicine, the dose will be slowly lowered over time to avoid any side effects. You may get drowsy or dizzy. Do not drive, use machinery, or do anything that needs mental alertness until you know how this medicine affects you. Do not stand or sit up quickly, especially if you are an older patient. This reduces the risk of dizzy or fainting spells. Alcohol may interfere with the effect of this medicine. Avoid alcoholic drinks. There are different types of narcotic medicines (opiates) for pain. If you take more than one type at the same time, you may have more side effects. Give your health care provider a list of all medicines you use. Your doctor will tell you how much medicine to take. Do not take more medicine than directed. Call emergency for help if you have problems breathing. The medicine will cause constipation. Try to have a bowel movement at least every 2 to 3 days. If you do not have a bowel movement for 3 days, call your doctor or health respite care provider. Do not take Tylenol (acetaminophen) or medicines that have acetaminophen with this medicine. Too much acetaminophen can be very dangerous. Many nonprescription medicines contain acetaminophen. Always read the labels carefully to avoid taking more acetaminophen. You have been given the following additional information: Patella Fracture Knee Immobilizer Oxycodone Hydrochloride, Acetaminophen Oral tablet No strenuous activity. No weight bearing. (Electronically signed by Alfreda Hua P.A.-C 12/22/2016 19:28)
--- NOTE | 2016-12-22 19:55 | DIAGNOSTIC IMAGING REPORT ---
PROCEDURE: XR CHEST 2 VIEW INDICATION: Preop left knee surgery. TECHNIQUE: PA and lateral views. COMPARISON: None. FINDINGS: Lungs are clear. Heart and mediastinum are normal. There are mild to moderate degenerative change of the thoracic spine. IMPRESSION: 1. Negative chest.
== END 2016-12-22 19:19 | disposition home or self-care (01) ==
LOC: ED SRH 16:31
DX: S82.032A Displaced transverse fracture of left patella, initial encounter for closed fracture (principal); W01.198A Fall on same level from slipping, tripping and stumbling with subsequent striking against other object, initial encounter; Y93.89 Activity, other specified; Y92.9 Unspecified place or not applicable; Y99.9 Unspecified external cause status; I10 Essential (primary) hypertension; E11.9 Type 2 diabetes mellitus without complications; E07.9 Disorder of thyroid, unspecified; Z79.84 Long term (current) use of oral hypoglycemic drugs; Z79.82 Long term (current) use of aspirin